=== PATIENT | male | born 1955 | race Caucasian/White ===

== ENCOUNTER 2017-07-12 11:04 | Inpatient (IN) | payer OTHER ==
[2017-07-11 10:30] VITALS: BP 165/117
[2017-07-11 11:15] LABS: ASPARTATE AMINO TRANSFERASE 51 U/L (15-37); BLOOD UREA NITROGEN 12 mg/dL (7-18)
[2017-07-11 11:50] LABS: HEMATOCRIT 43.9 % (39.2-51.8); HEMOGLOBIN 14.3 g/dL (13.7-18.0); WHITE BLOOD COUNT 5.3 x10^3/uL (3.4-10)
[~2017-07-12] VITALS: Ht 175.3 cm; Wt 105.2 kg
[~2017-07-12 11:04] MED LIST: ALBU6.7H INH; ASPI-650 PO; CARV25TA12 PO; CHOL200024 PO; EZET10TA18 PO; FLUT1DIS3 INH; MAGN250T8 PO; MONT10TA6 PO; OMEG-14 PO; OMEP20TA62 PO; ROSU20TA PO; TADA20TA PO; VALS80TA3 PO
[2017-07-12] MEDS ORDERED: SODIUM CHLORIDE 0.9% 1,000 ML IV SCH (12:55)
[2017-07-12] MEDS ORDERED: MIDAZOLAM 1 MG/ML, 5ML ONE (14:41)
[2017-07-12] MEDS ORDERED: FENTANYL PF 100 MCG/2ML ONE (14:41)
[2017-07-12] MEDS ORDERED: VASOPRESSIN 20 UNIT/ML, 1ML ONE (15:38)
[2017-07-12] MEDS ORDERED: PROPOFOL 10 MG/ML, 20ML ONE (15:38)
[2017-07-12] MEDS ORDERED: ONDANSETRON 2MG/ML, 2ML ONE (15:38)
[2017-07-12] MEDS ORDERED: SUCCINYLCHOLINE 20 MG/ML, 10ML ONE (15:38)
[2017-07-12] MEDS ORDERED: DEXAMETHASONE 4 MG/ML, 1ML ONE (15:38)
[2017-07-12] MEDS ORDERED: ROCURONIUM 10 MG/ML ONE (15:38)
[2017-07-12] MEDS ORDERED: ISOPROTERENOL 0.2MG/ML, 5ML ONE (16:22)
[2017-07-12] MEDS ORDERED: HEPARIN 1,000 UNITS/ML, 10ML ONE (16:48)
[2017-07-12] MEDS ORDERED: PROTAMINE SULFATE 10 MG/ML, 5ML ONE (17:48)
[2017-07-12] MEDS ORDERED: ALBUTEROL SULFATE 2.5 MG/3 ML NPPB PRN ×2 (18:00→19:00)
[2017-07-12] MEDS ORDERED: ZOLPIDEM 5MG TABLET PO PRN (18:00)
[2017-07-12] MEDS ORDERED: TADALAFIL 20 MG PO PRN (18:00)
[2017-07-12] MEDS ORDERED: ACETAMINOPHEN 325 MG TABLET PO PRN ×2 (18:00→19:00)
[2017-07-12] MEDS ORDERED: LABETALOL 5MG/ML, 20ML IV PRN (19:00)
[2017-07-12] MEDS ORDERED: ACETAMINOPHEN 650 MG/20.3 ML UDC ONE (19:00)
[2017-07-12] MEDS ORDERED: OXYcodone 5 MG/5 ML ORAL.SOL UDC ONE (19:00)
[2017-07-12] MEDS ORDERED: MEPERIDINE/PF 25MG/0.5ML IVPush PRN (19:00)
[2017-07-12] MEDS ORDERED: MIDAZOLAM 1 MG/ML, 2ML IV PRN (19:00)
[2017-07-12] MEDS ORDERED: OXYcodone 5 MG/5 ML ORAL.SOL UDC PO PRN (19:00)
[2017-07-12] MEDS ORDERED: ONDANSETRON 2MG/ML, 2ML IVPush PRN (19:00)
[2017-07-12] MEDS ORDERED: FENTANYL PF 100 MCG/2ML IV PRN (19:00)
[2017-07-12] MEDS ORDERED: HYDROmorphone 1 MG/ML, 1ML IV PRN (19:00)
[2017-07-12] MEDS ORDERED: hydrALAzine 20 MG/ML, 1ML IV PRN (19:00)
[2017-07-12] MEDS ORDERED: PROMETHAZINE 25 MG/ML, 1ML IV PRN (19:00)
[2017-07-12] MEDS ORDERED: hydrALAzine 20 MG/ML, 1ML ONE (19:18)
[2017-07-12 19:48] VITALS: BP 148/91
[2017-07-12 22:05] VITALS: BP 154/107
[2017-07-12] MEDS: SOTALOL 80MG TABLET PO SCH (22:07)
[2017-07-12] MEDS: ATORVASTATIN 40 MG TABLET PO SCH (22:08)
[2017-07-12] MEDS: OMEGA-3/FISH OIL CAPSULE PO SCH (22:08)
[2017-07-12] MEDS: FLUTICASONE/VILANTEROL 100-25MCG/INH INH SCH (22:11)
[2017-07-12] MEDS: OMEPRAZOLE 20 MG CAPSULE.DR PO SCH (22:11)
[2017-07-12 22:22] VITALS: BP 157/107
[2017-07-13] VITALS (7 sets, daily range): BP systolic 157–188; BP diastolic 94–122
[2017-07-13] MEDS: SOTALOL 80MG TABLET PO SCH (05:37)
[2017-07-13] MEDS ORDERED: VALSARTAN 80 MG TABLET PO ONE (08:30)
[2017-07-13] MEDS: FLUTICASONE/VILANTEROL 100-25MCG/INH INH SCH ×3 (08:55→19:59)
[2017-07-13] MEDS ORDERED: VALSARTAN 80 MG TABLET PO SCH (09:00)
[2017-07-13] MEDS ORDERED: AMLODIPINE 5 MG TABLET PO SCH (09:00)
[2017-07-13] MEDS: EZETIMIBE 10 MG TABLET PO SCH (09:08)
[2017-07-13] MEDS: MAGNESIUM OXIDE 400 MG TABLET PO SCH (09:08)
[2017-07-13] MEDS: MONTELUKAST 10 MG TABLET PO SCH (09:08)
[2017-07-13] MEDS: OMEGA-3/FISH OIL CAPSULE PO SCH ×2 (09:08→19:58)
[2017-07-13] MEDS: ASPIRIN 325 MG TABLET EC PO SCH (09:09)
[2017-07-13] MEDS: CHOLECALCIFEROL 1,000 UNIT TABLET PO SCH (09:09)
[2017-07-13] MEDS: OMEPRAZOLE 20 MG CAPSULE.DR PO SCH ×2 (09:10→19:58)
[2017-07-13] MEDS: SOTALOL 120MG TABLET PO SCH (17:47)
[2017-07-13] MEDS: ATORVASTATIN 40 MG TABLET PO SCH (19:58)
[2017-07-14 02:10] VITALS: BP 173/93
[2017-07-14 04:42] VITALS: BP 164/90
[2017-07-14] MEDS: SOTALOL 120MG TABLET PO SCH (06:17)
[2017-07-14] MEDS ORDERED: VALS80TA3 PO (07:42)
[2017-07-14] MEDS ORDERED: SOTA120T14 PO (07:42)
[2017-07-14 07:53] VITALS: BP 177/99
[2017-07-14] MEDS ORDERED: AMLODIPINE 5 MG TABLET PO SCH (09:00)
[2017-07-14] MEDS ORDERED: VALSARTAN 160 MG TABLET PO SCH (09:00)
[2017-07-14] MEDS: MAGNESIUM OXIDE 400 MG TABLET PO SCH (09:35)
[2017-07-14] MEDS: EZETIMIBE 10 MG TABLET PO SCH (09:36)
[2017-07-14] MEDS: ASPIRIN 325 MG TABLET EC PO SCH (09:36)
[2017-07-14] MEDS: OMEGA-3/FISH OIL CAPSULE PO SCH (09:36)
[2017-07-14] MEDS: MONTELUKAST 10 MG TABLET PO SCH (09:37)
[2017-07-14] MEDS: CHOLECALCIFEROL 1,000 UNIT TABLET PO SCH (09:37)
[2017-07-14] MEDS: FLUTICASONE/VILANTEROL 100-25MCG/INH INH SCH (10:51)
== END 2017-07-14 10:45 | disposition home or self-care (01) | DRG 683 ==
LOC: CACL 11:04 → ORIP 17:57 → 5SO 19:46
PROVIDERS: ADMIT Internal Medicine Cardiovascular Disease; ATTEND Internal Medicine Cardiovascular Disease
DX: I12.9 Hypertensive chronic kidney disease with stage 1 through stage 4 chronic kidney disease, or unspecified chronic kidney disease (principal); I47.1 Supraventricular tachycardia; E11.22 Type 2 diabetes mellitus with diabetic chronic kidney disease; I95.9 Hypotension, unspecified; Z95.1 Presence of aortocoronary bypass graft; I48.91 Unspecified atrial fibrillation; I45.10 Unspecified right bundle-branch block; E78.2 Mixed hyperlipidemia; N18.2 Chronic kidney disease, stage 2 (mild); I25.10 Atherosclerotic heart disease of native coronary artery without angina pectoris; Z87.891 Personal history of nicotine dependence; Z86.79 Personal history of other diseases of the circulatory system
CPT/HCPCS: 36415; 71020; 80053; 85025; 85347; 93005; 93308; 93321; 93325; 93620; 93621; 93622; 93623; C1732; C1760; C1769; C1894; J1100; J1644; J2250; J2405; J2704; J2720; J3010; C1730; C2630; J0330; J0360; Q9967

== ENCOUNTER 2017-07-26 12:03 | Inpatient (IN) | payer OTHER ==
[~2017-07-26] VITALS: Ht 175.3 cm; Wt 100.3 kg
[~2017-07-26 12:03] MED LIST changes: +SOTA120T14 PO
[2017-07-26 12:58] VITALS: BP 154/79
[2017-07-26] MEDS: SODIUM CHLORIDE 0.9% 1,000 ML IV SCH ×2 (13:03→21:03)
[2017-07-26 13:27] LABS: HEMATOCRIT 44.6 % (39.2-51.8); HEMOGLOBIN 14.7 g/dL (13.7-18.0)
[2017-07-26] MEDS ORDERED: ONDANSETRON 2MG/ML, 2ML IV PRN (13:30)
[2017-07-26] MEDS ORDERED: BISACODYL 10 MG SUPP PR PRN (13:30)
[2017-07-26] MEDS ORDERED: ACETAMINOPHEN 650 MG/20.3 ML UDC PO PRN (13:30)
[2017-07-26] MEDS ORDERED: ZOLPIDEM 5MG TABLET PO PRN (13:30)
[2017-07-26] MEDS ORDERED: ALBUTEROL HFA 90 MCG/SPRAY INH PRN (13:30)
[2017-07-26] MEDS ORDERED: CEFAZOLIN PMX 1GM/50ML 50 ML IVPB ONE (13:30)
[2017-07-26 13:39] LABS: BLOOD UREA NITROGEN 11 mg/dL (7-18)
[2017-07-26] MEDS ORDERED: PLEASE ENTER HEIGHT AND WEIGHT MC SCH (14:00)
[2017-07-26] MEDS ORDERED: MIDAZOLAM 1 MG/ML, 5ML ONE ×2 (14:56→15:27)
[2017-07-26] MEDS ORDERED: CEFAZOLIN PMX 1GM/50ML 50 ML ONE (14:56)
[2017-07-26] MEDS ORDERED: FENTANYL PF 100 MCG/2ML ONE ×2 (14:56→15:27)
[2017-07-26] MEDS ORDERED: LIDOCAINE 2%, 20ML ONE ×2 (14:57→15:23)
[2017-07-26] MEDS ORDERED: CEFAZOLIN 1,000 MG ONE (14:57)
[2017-07-26 18:28] VITALS: BP 171/103
[2017-07-26] MEDS: SOTALOL 120MG TABLET PO SCH (18:29)
[2017-07-26] MEDS: VALSARTAN 80 MG TABLET PO SCH (20:07)
[2017-07-26] MEDS: SODIUM CHLORIDE FLUSH 10ML SYR IVF SCH (20:12)
[2017-07-26] MEDS ORDERED: SODIUM CHLORIDE FLUSH 10ML SYR IVF SCH ×2 (21:00)
[2017-07-26] MEDS ORDERED: MONTELUKAST 5 MG TAB.CHEW PO SCH (21:00)
[2017-07-26] MEDS: OXYcodone/APAP 5/325MG TABLET PO PRN (21:09)
[2017-07-26 21:55] VITALS: BP 192/125
[2017-07-26] MEDS: CEFAZOLIN PMX 1GM/50ML 50 ML IVPB SCH (22:50)
[2017-07-26 23:31] VITALS: BP 175/111
[2017-07-26 23:58] VITALS: BP 166/107
[2017-07-27 05:36] VITALS: BP 177/113
[2017-07-27 05:42] VITALS: BP 165/100
[2017-07-27] MEDS: CEFAZOLIN PMX 1GM/50ML 50 ML IVPB SCH (05:47)
[2017-07-27] MEDS: SOTALOL 120MG TABLET PO SCH (05:47)
[2017-07-27] MEDS ORDERED: ASPIRIN 81 MG TABLET EC PO SCH (06:00)
[2017-07-27 06:42] VITALS: BP 164/97
[2017-07-27] MEDS ORDERED: OMEPRAZOLE 20 MG CAPSULE.DR PO SCH (07:30)
[2017-07-27] MEDS: VALSARTAN 80 MG TABLET PO SCH (07:53)
[2017-07-27] MEDS: SODIUM CHLORIDE FLUSH 10ML SYR IVF SCH (07:53)
[2017-07-27] MEDS: OXYcodone/APAP 5/325MG TABLET PO PRN (07:55)
[2017-07-27] MEDS ORDERED: EZETIMIBE 10 MG TABLET PO SCH (09:00)
[2017-07-27] MEDS ORDERED: VALSARTAN 80 MG TABLET PO SCH (09:00)
[2017-07-27] MEDS ORDERED: VALSARTAN 80 MG TABLET PO ONE ×2 (09:00)
[2017-07-27] MEDS ORDERED: OXYC1TAB7 PO (10:24)
[2017-07-27] MEDS ORDERED: SOTA120T14 PO (10:25)
== END 2017-07-27 11:40 | disposition home or self-care (01) | DRG 244 ==
LOC: 5SO 12:21
PROVIDERS: ADMIT Internal Medicine Cardiovascular Disease; ATTEND Internal Medicine Cardiovascular Disease
PROC: 0JH606Z Insertion of Pacemaker, Dual Chamber into Chest Subcutaneous Tissue and Fascia, Open Approach (ICD-10-PCS; principal; 2017-07-26)
PROC: 02H63JZ Insertion of Pacemaker Lead into Right Atrium, Percutaneous Approach (ICD-10-PCS; 2017-07-26)
PROC: 02HK3JZ Insertion of Pacemaker Lead into Right Ventricle, Percutaneous Approach (ICD-10-PCS; 2017-07-26)
DX: I47.2 Ventricular tachycardia (principal); E11.9 Type 2 diabetes mellitus without complications; Z95.1 Presence of aortocoronary bypass graft; E78.5 Hyperlipidemia, unspecified; I10 Essential (primary) hypertension; I25.10 Atherosclerotic heart disease of native coronary artery without angina pectoris; Z82.49 Family history of ischemic heart disease and other diseases of the circulatory system; Z86.79 Personal history of other diseases of the circulatory system; Z95.0 Presence of cardiac pacemaker
CPT/HCPCS: 33208; 36005; 36415; 71010; 80048; 85025; 85610; 93005; 99156; 99157; C1779; C1785; C1892; J0690; J2250; J3010; J3490; Q9967

== ENCOUNTER → 2017-08-12 | Outpatient (CLI) | payer OTHER ==
[~2017-08-12] MED LIST changes: +OXYC1TAB7 PO
== END ==
LOC: CFH 08:58
PROVIDERS: ATTEND Internal Medicine Cardiovascular Disease
DX: Z02.9 Encounter for administrative examinations, unspecified (principal)

== ENCOUNTER 2018-03-03 09:00 | Inpatient (IN) | payer OTHER ==
[~2018-03-03] VITALS: Ht 175.3 cm; Wt 104.0 kg
[2018-03-03 11:22] VITALS: BP 179/109
[2018-03-03] MEDS ORDERED: MAGN400T7 PO (11:36)
[2018-03-03] MEDS ORDERED: VALS80TA3 PO (11:36)
[2018-03-03] MEDS ORDERED: FLUT12AE2 INH (11:36)
[2018-03-03 11:55] LABS: ALBUMIN 2.5 g/dL (3.4-5.0); ANION GAP 10 mmol/L (5-15); CALCIUM 8.7 mg/dL (8.5-10.1); CHLORIDE 104 mmol/L (98-107)
[2018-03-03] MEDS ORDERED: ACETAMINOPHEN 325 MG TABLET PO PRN (12:00)
[2018-03-03] MEDS ORDERED: BISACODYL 10 MG SUPP PR PRN (12:00)
[2018-03-03] MEDS ORDERED: ONDANSETRON 2MG/ML, 2ML IVPush PRN (12:00)
[2018-03-03] MEDS ORDERED: BISACODYL 5 MG EC TABLET PO PRN (12:00)
[2018-03-03 12:04] LABS: ALANINE AMINOTRANSFERASE 27 U/L (12-78); ALKALINE PHOSPHATASE 92 U/L (45-117); BILIRUBIN,TOTAL 2.7 mg/dL (0.2-1.0); CHOL/HDL RATIO 2.8; CHOLESTEROL, TOTAL 105 mg/dL (140-239); CREATININE 1.29 mg/dL (0.7-1.3); FREE T4 (FREE THYROXINE) 1.34 ng/dL (0.76-1.46); HDL CHOL % 36 % (26-37); HDL CHOLESTEROL (DIRECT) 38 mg/dL (40-60); LDL CHOLESTEROL,CALCULATED 50 mg/dL (54-169); LDL/HDL RATIO 1.3 (0.5-3.0); TOTAL PROTEIN 6.2 g/dL (6.4-8.2); TRIGLYCERIDES 87 mg/dL (50-200); VLDL CHOLESTEROL 17 mg/dL (0-25)
[2018-03-03 12:28] LABS: HEMOGLOBIN A1C 5.9 % (4.2-6.3)
[2018-03-03 13:35] VITALS: BP 162/100
[2018-03-03] MEDS: ENOXAPARIN 40 MG/0.4 ML SQ SCH (14:00)
[2018-03-03 17:18] VITALS: BP 126/89
[2018-03-03] MEDS: CARVEDILOL 6.25 MG TABLET PO SCH (17:20)
[2018-03-03 20:34] VITALS: BP 152/95
[2018-03-03] MEDS: CRESTOR 20 MG PO SCH (21:00)
[2018-03-03] MEDS: ZOLPIDEM 5MG TABLET PO PRN (21:00)
[2018-03-04 02:07] VITALS: BP 160/105
[2018-03-04] MEDS: AMLODIPINE 5 MG TABLET PO SCH ×2 (03:26→08:51)
[2018-03-04] MEDS: CARVEDILOL 6.25 MG TABLET PO SCH (05:26)
[2018-03-04 05:28] VITALS: BP 149/94
[2018-03-04 07:55] VITALS: BP 138/94
[2018-03-04] MEDS: EZETIMIBE 10 MG TABLET PO SCH (08:50)
[2018-03-04] MEDS: VALSARTAN 160 MG TABLET PO SCH (08:50)
[2018-03-04] MEDS: OMEPRAZOLE 20 MG CAPSULE.DR PO SCH (08:50)
[2018-03-04] MEDS ORDERED: ALBUTEROL HFA 90 MCG/SPRAY INH PRN (10:30)
[2018-03-04] MEDS ORDERED: hydrALAzine 20 MG/ML, 1ML IV PRN (12:00)
[2018-03-04] MEDS: ENOXAPARIN 40 MG/0.4 ML SQ SCH (12:07)
[2018-03-04 13:11] VITALS: BP 120/64
[2018-03-04] MEDS: CARVEDILOL 12.5 MG TABLET PO SCH (17:59)
[2018-03-04] MEDS: CRESTOR 20 MG PO SCH (20:37)
[2018-03-04] MEDS: FLOVENT 220 MCG INH SCH (20:37)
[2018-03-04] MEDS: ZOLPIDEM 5MG TABLET PO PRN (20:39)
[2018-03-04 20:52] VITALS: BP 144/94
[2018-03-05 00:12] VITALS: BP 144/77
[2018-03-05 06:24] VITALS: BP 166/103
[2018-03-05] MEDS: CARVEDILOL 12.5 MG TABLET PO SCH (06:26)
[2018-03-05] MEDS: VALSARTAN 160 MG TABLET PO SCH (08:00)
[2018-03-05] MEDS: OMEPRAZOLE 20 MG CAPSULE.DR PO SCH (08:00)
[2018-03-05] MEDS: EZETIMIBE 10 MG TABLET PO SCH (08:00)
[2018-03-05] MEDS: FLOVENT 220 MCG INH SCH ×2 (08:01→20:15)
[2018-03-05] MEDS ORDERED: AMIODARONE 900 MG in DEXTROSE 5% 482 ML IV PRN (10:00)
[2018-03-05] MEDS ORDERED: FILTER 0.22 MICRON FOR AMIODARONE IV PRN (10:00)
[2018-03-05] MEDS ORDERED: AMIODARONE 150 MG in DEXTROSE 5% 100 ML IV ONE (10:00)
[2018-03-05] MEDS: ENOXAPARIN 40 MG/0.4 ML SQ SCH (11:11)
[2018-03-05 12:55] VITALS: BP 101/68
[2018-03-05 16:50] VITALS: BP 141/89
[2018-03-05] MEDS: CARVEDILOL 25 MG TABLET PO SCH (16:54)
[2018-03-05 20:10] VITALS: BP 114/74
[2018-03-05] MEDS: CRESTOR 20 MG PO SCH (20:15)
[2018-03-05] MEDS: ZOLPIDEM 5MG TABLET PO PRN (20:26)
[2018-03-06 00:33] VITALS: BP 138/88
[2018-03-06 05:00] VITALS: BP 128/88
[2018-03-06] MEDS: CARVEDILOL 25 MG TABLET PO SCH ×2 (05:05→17:17)
[2018-03-06 07:09] VITALS: BP 114/71
[2018-03-06] MEDS: VALSARTAN 160 MG TABLET PO SCH (07:42)
[2018-03-06] MEDS: FLOVENT 220 MCG INH SCH ×2 (07:42→19:40)
[2018-03-06] MEDS: OMEPRAZOLE 20 MG CAPSULE.DR PO SCH (07:42)
[2018-03-06] MEDS: EZETIMIBE 10 MG TABLET PO SCH (07:42)
[2018-03-06] MEDS: AMIODARONE 200 MG TABLET PO SCH ×2 (10:03→19:40)
[2018-03-06] MEDS: ENOXAPARIN 40 MG/0.4 ML SQ SCH (12:03)
[2018-03-06 13:53] VITALS: BP 110/76
[2018-03-06 18:29] VITALS: BP 110/68
[2018-03-06] MEDS: CRESTOR 20 MG PO SCH (19:40)
[2018-03-07 00:40] VITALS: BP 119/77
[2018-03-07] MEDS: CARVEDILOL 25 MG TABLET PO SCH (06:29)
[2018-03-07 06:58] VITALS: BP 137/79
[2018-03-07] MEDS: VALSARTAN 160 MG TABLET PO SCH (08:04)
[2018-03-07] MEDS: OMEPRAZOLE 20 MG CAPSULE.DR PO SCH (08:04)
[2018-03-07] MEDS: EZETIMIBE 10 MG TABLET PO SCH (08:05)
[2018-03-07] MEDS: AMIODARONE 200 MG TABLET PO SCH (08:05)
[2018-03-07] MEDS: FLOVENT 220 MCG INH SCH (08:09)
[2018-03-07] MEDS ORDERED: CARV25TA12 PO (08:38)
[2018-03-07] MEDS ORDERED: AMIO200T42 PO (08:38)
== END 2018-03-07 11:15 | disposition home or self-care (01) | DRG 309 ==
LOC: 5SO 10:58 → DCLOUNGE 03-07 11:02
PROVIDERS: ADMIT Internal Medicine Cardiovascular Disease; ATTEND Internal Medicine Cardiovascular Disease
DX: I47.2 Ventricular tachycardia (principal); D68.69 Other thrombophilia; E66.9 Obesity, unspecified; I48.0 Paroxysmal atrial fibrillation; I25.10 Atherosclerotic heart disease of native coronary artery without angina pectoris; Z86.79 Personal history of other diseases of the circulatory system; Z87.891 Personal history of nicotine dependence; Z95.0 Presence of cardiac pacemaker; Z95.1 Presence of aortocoronary bypass graft; Z68.33 Body mass index [BMI] 33.0-33.9, adult; Z51.81 Encounter for therapeutic drug level monitoring; I49.5 Sick sinus syndrome; I25.2 Old myocardial infarction; I12.9 Hypertensive chronic kidney disease with stage 1 through stage 4 chronic kidney disease, or unspecified chronic kidney disease; E11.22 Type 2 diabetes mellitus with diabetic chronic kidney disease; N18.2 Chronic kidney disease, stage 2 (mild); E78.2 Mixed hyperlipidemia; Z88.8 Allergy status to other drugs, medicaments and biological substances
CPT/HCPCS: 36415; 71046; 80053; 80061; 83036; 84439; 84443; 85014; 85018; 93005; J1650; J0282; J7060

== ENCOUNTER → 2018-09-24 | Outpatient (CLI) | payer OTHER ==
[~2018-09-24] MED LIST changes: +AMIO200T42 PO; +FLUT12AE2 INH; +MAGN400T7 PO; +REGADENOSON 0.4 MG/5 ML SYRINGE ONE
== END | disposition home or self-care (01) ==
LOC: CFH 07:58
PROVIDERS: ATTEND Internal Medicine Cardiovascular Disease
DX: I08.0 Rheumatic disorders of both mitral and aortic valves (principal); E11.9 Type 2 diabetes mellitus without complications; I44.0 Atrioventricular block, first degree; E78.5 Hyperlipidemia, unspecified; J90 Pleural effusion, not elsewhere classified; Z95.0 Presence of cardiac pacemaker; Z95.1 Presence of aortocoronary bypass graft
CPT/HCPCS: 78452; 93017; 93306; A9502; J2785

== ENCOUNTER 2018-11-12 07:05 | Observation (INO) | payer OTHER ==
[~2018-11-12] VITALS: Ht 175.3 cm; Wt 97.0 kg
[~2018-11-12 07:05] MED LIST changes: +BUPIVACAINE/PF-EPI 0.5% 1:200K ONE; +CARV12.52 PO; +LACT10SO20 PO; -REGADENOSON 0.4 MG/5 ML SYRINGE ONE; -ROSU20TA PO; +ROSU20TA2 PO; +SPIR50TA4 PO
[2018-11-12] MEDS ORDERED: LACTATED RINGERS 1,000 ML IV SCH (07:58)
[2018-11-12 08:02] VITALS: BP 126/85
[2018-11-12] MEDS ORDERED: MIDAZOLAM 1 MG/ML, 2ML ONE (08:41)
[2018-11-12] MEDS ORDERED: FENTANYL PF 250 MCG/5ML ONE (08:42)
[2018-11-12] MEDS ORDERED: SUCCINYLCHOLINE 20 MG/ML, 10ML ONE (08:56)
[2018-11-12] MEDS ORDERED: GLYCOPYRROLATE 0.2MG/1ML, 5ML ONE (08:56)
[2018-11-12] MEDS ORDERED: ONDANSETRON 2MG/ML, 2ML ONE (08:56)
[2018-11-12] MEDS ORDERED: CEFAZOLIN 1,000 MG ONE (08:56)
[2018-11-12] MEDS ORDERED: NEOSTIGMINE 1 MG/ML, 10ML ONE (08:56)
[2018-11-12] MEDS ORDERED: ROCURONIUM 10 MG/ML,10ML ONE (08:56)
[2018-11-12] MEDS ORDERED: PROPOFOL 10 MG/ML, 20ML ONE (08:56)
[2018-11-12] MEDS ORDERED: OXYcodone 5 MG/5 ML ORAL.SOL UDC PO PRN ×2 (10:00→17:30)
[2018-11-12] MEDS ORDERED: LORazepam 2 MG/ML, 1ML IVPush PRN (10:00)
[2018-11-12] MEDS ORDERED: MORPHINE SULFATE 4 MG/ML, 1ML IVPush PRN (10:00)
[2018-11-12] MEDS ORDERED: ACETAMINOPHEN 325 MG TABLET PO PRN ×2 (10:00→19:30)
[2018-11-12] MEDS ORDERED: METOCLOPRAMIDE 5 MG/ML, 2ML IV PRN (10:00)
[2018-11-12] MEDS ORDERED: LABETALOL 5MG/ML, 20ML IV PRN (10:00)
[2018-11-12] MEDS ORDERED: hydrALAzine 20 MG/ML, 1ML IV PRN (10:00)
[2018-11-12] MEDS ORDERED: ALBUTEROL SULFATE 2.5 MG/3 ML NPPB PRN (10:00)
[2018-11-12] MEDS ORDERED: hydrALAzine 20 MG/ML, 1ML ONE (10:36)
[2018-11-12] MEDS ORDERED: FENTANYL PF 100 MCG/2ML ONE (10:36)
[2018-11-12] MEDS ORDERED: OXYcodone 5 MG/5 ML ORAL.SOL UDC ONE (10:36)
[2018-11-12] MEDS: FENTANYL PF 100 MCG/2ML IV PRN ×2 (10:45→11:00)
[2018-11-12] MEDS: HYDROmorphone 2 MG/ML, 1ML IVPush PRN ×2 (12:33→20:21)
[2018-11-12] MEDS ORDERED: DIPHENHYDRAMINE 50 MG/ML, 1ML IVPush PRN (16:00)
[2018-11-12] MEDS ORDERED: SCOPOLAMINE PATCH, 1.5MG PATCH.TD72 TD ONE ×2 (16:16→16:30)
[2018-11-12] MEDS ORDERED: ONDANSETRON 2MG/ML, 2ML IVPush ONE (16:30)
[2018-11-12 19:26] VITALS: BP 144/92
[2018-11-12] MEDS ORDERED: morphine SULFATE 10 MG/ML, 1ML IVPush PRN (19:30)
[2018-11-12] MEDS ORDERED: ONDANSETRON 2MG/ML, 2ML IVPush PRN (19:30)
[2018-11-12] MEDS ORDERED: ACETAMINOPHEN 650 MG SUPP PR PRN (19:30)
[2018-11-12] MEDS ORDERED: ONDANSETRON 4 MG TABLET PO PRN (19:30)
[2018-11-12] MEDS ORDERED: PROMETHAZINE 25 MG SUPP PR PRN (19:30)
[2018-11-12] MEDS ORDERED: ALBUTEROL SULFATE 2.5 MG/3 ML HHN PRN (20:30)
[2018-11-12] MEDS ORDERED: EZETIMIBE 10 MG TABLET PO SCH (21:00)
[2018-11-12] MEDS ORDERED: MAGNESIUM OXIDE 400 MG TABLET PO SCH (21:00)
[2018-11-12] MEDS: CARVEDILOL 12.5 MG TABLET PO SCH (21:43)
[2018-11-13 00:33] VITALS: BP 145/70
[2018-11-13] MEDS: OXYcodone 5 MG/5 ML ORAL.SOL UDC PO PRN ×4 (01:08→17:10)
[2018-11-13 04:28] VITALS: BP 122/78
[2018-11-13] MEDS: OMEPRAZOLE 20 MG CAPSULE.DR PO SCH ×2 (05:57→09:00)
[2018-11-13] MEDS ORDERED: CARVEDILOL 12.5 MG TABLET PO SCH (06:00)
[2018-11-13] MEDS ORDERED: ASPIRIN 325 MG TABLET EC PO SCH (06:00)
[2018-11-13 07:15] VITALS: BP 112/78
[2018-11-13] MEDS: CARVEDILOL 12.5 MG TABLET PO SCH (07:52)
[2018-11-13] MEDS ORDERED: LACTATED RINGERS 1,000 ML IV SCH (07:58)
[2018-11-13] MEDS ORDERED: OMEGA-3/FISH OIL CAPSULE PO SCH (09:00)
[2018-11-13] MEDS ORDERED: AMIODARONE 200 MG TABLET PO SCH (09:00)
[2018-11-13] MEDS ORDERED: CHOLECALCIFEROL 1,000 UNIT TABLET PO SCH (09:00)
[2018-11-13] MEDS ORDERED: TAMSULOSIN 0.4 MG CAP.ER.24H PO SCH (09:00)
[2018-11-13] MEDS ORDERED: SPIRONOLACTONE 50 MG TABLET PO SCH (09:00)
[2018-11-13] MEDS ORDERED: LACTULOSE 20 GM/30 ML UDC PO SCH (09:00)
[2018-11-13] MEDS ORDERED: MORPHINE SULFATE 4 MG/ML, 1ML ONE (10:44)
[2018-11-13 13:13] VITALS: BP 122/74
[2018-11-13] MEDS ORDERED: TAMS-11 PO (17:26)
[2018-11-13 17:41] VITALS: BP 128/94
== END 2018-11-13 18:05 | disposition home or self-care (01) ==
LOC: OUT 07:05 → 4NOR 19:15 → OUT 19:21
PROVIDERS: ADMIT Surgery; ATTEND Surgery
DX: K40.90 Unilateral inguinal hernia, without obstruction or gangrene, not specified as recurrent (principal); K42.9 Umbilical hernia without obstruction or gangrene; D17.9 Benign lipomatous neoplasm, unspecified; K66.8 Other specified disorders of peritoneum; I10 Essential (primary) hypertension
CPT/HCPCS: 49650; 49652; 96374; 96375; C1781; G0378; J0330; J0360; J0690; J1170; J1200; J2250; J2270; J2405; J2704; J2710; J3010; J3490

== ENCOUNTER 2018-11-15 08:49 | Inpatient (IN) | payer OTHER ==
[~2018-11-15] VITALS: Ht 175.3 cm; Wt 95.4 kg
[~2018-11-15 08:49] MED LIST changes: -BUPIVACAINE/PF-EPI 0.5% 1:200K ONE; +TAMS-11 PO
--- NOTE | 2018-11-15 08:53 | NUR ---
TITRATOR: MD ALEJANDRO OF [facility] SENT PT FOR EVALUATION OF CONFUSION X 3 DAYS & STATES THAT HIS TEAM WILL TAKE PT IF HE IS TO BE ADMITTED. PT HAD HERNIA REPAIR BY MD LINTON 3 DAYS AGO W/ SOME URINARY RETENTION.
[2018-11-15] MEDS ORDERED: SODIUM CHLORIDE FLUSH 10ML SYR IVF ONE (09:30)
--- NOTE | 2018-11-15 09:48 | NUR ---
pt refuses iv at this time. family at bedside encouraging pt to stay and particiate. pt uncooperative and insists that he will not be admitted.
[2018-11-15 10:05] LABS: ALANINE AMINOTRANSFERASE 16 U/L (12-78); ALBUMIN 2.8 g/dL (3.4-5.0); ANION GAP 8 mmol/L (5-15); CALCIUM 8.6 mg/dL (8.5-10.1); CHLORIDE 103 mmol/L (98-107); CREATININE 1.44 mg/dL (0.7-1.3)
[2018-11-15 10:07] LABS: ALKALINE PHOSPHATASE 85 U/L (45-117); BILIRUBIN,TOTAL 2.5 mg/dL (0.2-1.0); TOTAL PROTEIN 6.4 g/dL (6.4-8.2)
[2018-11-15 10:24] LABS: INTERNATIONAL NORMALIZED RATIO 1.34 (0.93-1.1); PROTHROMBIN TIME 13.9 Seconds (9.6-11.5)
[2018-11-15 10:25] LABS: MICROSCOPIC INDICATED
[2018-11-15 10:28] LABS: ACETONE, SERUM Small (20mg/dL) mg/dL (Negative)
[2018-11-15 10:29] LABS: CULTURE INDICATED? NO
[2018-11-15] MEDS ORDERED: MAGNESIUM SULFATE PMX 2GM/50ML 50 ML IV ONE (10:30)
[2018-11-15] MEDS ORDERED: LACTULOSE 20 GM/30 ML UDC PO ONE (10:30)
[2018-11-15 10:50] LABS: MEAN CORPUSCULAR HGB CONC 32.6 g/dL (33.2-36.2); MEAN CORPUSCULAR VOLUME 92.1 fL (81-97); PLATELET COUNT 102 x10^3/uL (130-400); RED BLOOD COUNT 4.08 x10^6/uL (4.38-5.82); RED CELL DISTRIBUTION WIDTH 17.8 % (9.4-14.8)
[2018-11-15 10:51] LABS: MD YES; MEAN PLATELET VOLUME 8.8 fL (7.4-10.4)
[2018-11-15] MEDS ORDERED: MAGNESIUM SULFATE PMX 2GM/50ML 50 ML ONE (10:54)
[2018-11-15 10:56] LABS: BAND#(MANUAL) 0.05 x10^3/uL; BANDS%(MANUAL) 1 % (0-7); BASOS#(MANUAL) 0.05 x10^3/uL (0-0.1); BASOS% (MANUAL) 1 % (0-1); EOS#(MANUAL) 0.11 x10^3/uL (0.0-0.4); EOS% (MANUAL) 2 % (1-7); LYMPH#(MANUAL) 0.81 x10^3/uL (1-3.4); LYMPHS% (MANUAL) 15 % (22-44); MONOS#(MANUAL) 1.03 x10^3/uL (0.3-2.7); MONOS% (MANUAL) 19 % (2-9); SEG#(MANUAL) 3.35 x10^3/uL (1.8-6.8); SEGS% (MANUAL) 62 % (42-75)
[2018-11-15 10:58] LABS: <PLATELET ESTIMATE> DECREASED; ANISOCYTOSIS 1+; LARGE PLATELETS 1+; OVALOCYTES 1+
[2018-11-15] MEDS ORDERED: CARV6.252 PO (12:29)
[2018-11-15] MEDS ORDERED: ROSUVASTATIN CALCIUM PO (12:29)
[2018-11-15] MEDS ORDERED: LABETALOL 5MG/ML, 20ML IVPush PRN (12:30)
[2018-11-15] MEDS ORDERED: ONDANSETRON 2MG/ML, 2ML IVPush PRN (12:30)
--- NOTE | 2018-11-15 12:42 | NUR ---
SBAR TO ALLISON BLANCO VIA TELEPHONE
[2018-11-15 12:49] LABS: TROPONIN I < 0.015 ng/mL (0.000-0.045)
[2018-11-15 13:50] LABS: AMPHETAMINE SCREEN, URINE Negative (Negative); BARBITURATE SCREEN, URINE Negative (Negative); BENZODIAZEPINE SCREEN, URINE Positive (Negative); CANNABINOID SCREEN, URINE Negative (Negative)
[2018-11-15 13:51] LABS: COCAINE SCREEN, URINE Negative (Negative); METHADONE SCREEN, URINE Negative (Negative); OPIATE SCREEN, URINE Positive (Negative)
[2018-11-15 14:23] VITALS: BP 107/66
[2018-11-15] MEDS: SODIUM CHLORIDE 0.9% 1,000 ML IV SCH ×2 (15:00→22:42)
[2018-11-15] MEDS: IBUPROFEN 600 MG TABLET PO PRN ×2 (16:16→22:40)
[2018-11-15] MEDS: LORazepam 0.5MG TABLET PO PRN ×2 (16:16→22:40)
[2018-11-15 19:06] VITALS: BP 102/63
[2018-11-15 22:36] VITALS: BP 129/78
[2018-11-15] MEDS: CARVEDILOL 6.25 MG TABLET PO SCH (22:40)
[2018-11-15] MEDS: ASPIRIN 325 MG TABLET EC PO SCH (22:40)
[2018-11-15] MEDS: EZETIMIBE 10 MG TABLET PO SCH (22:40)
[2018-11-16] MEDS ORDERED: ZIPRASIDONE 20 MG INJ IM ONE (00:30)
[2018-11-16] MEDS ORDERED: ZOLPIDEM 5MG TABLET PO ONE (01:00)
[2018-11-16 01:48] VITALS: BP 128/79
[2018-11-16] MEDS ORDERED: DIPHENHYDRAMINE 25 MG CAPSULE PO ONE (04:00)
[2018-11-16] MEDS ORDERED: HALOPERIDOL 5 MG TABLET PO ONE ×2 (04:00→07:30)
[2018-11-16 04:41] LABS: MEAN CORPUSCULAR HEMOGLOBIN 30.5 pg (27.5-34.5); MEAN CORPUSCULAR HGB CONC 32.9 g/dL (33.2-36.2); MEAN CORPUSCULAR VOLUME 92.8 fL (81-97); MEAN PLATELET VOLUME 8.5 fL (7.4-10.4); PLATELET COUNT 91 x10^3/uL (130-400); RED BLOOD COUNT 3.67 x10^6/uL (4.38-5.82); RED CELL DISTRIBUTION WIDTH 17.9 % (9.4-14.8)
[2018-11-16 04:46] LABS: ALBUMIN 2.6 g/dL (3.4-5.0); ANION GAP 6 mmol/L (5-15); CALCIUM 7.9 mg/dL (8.5-10.1); CHLORIDE 106 mmol/L (98-107)
[2018-11-16 04:51] LABS: ALANINE AMINOTRANSFERASE 13 U/L (12-78); ALKALINE PHOSPHATASE 77 U/L (45-117); BILIRUBIN,TOTAL 2.2 mg/dL (0.2-1.0); PREALBUMIN 10.1 mg/dL (20.0-40.0)
[2018-11-16 05:43] LABS: BASOPHILS # (AUTO) 0.03 x10^3/uL (0-0.1); BASOPHILS % (AUTO) 1 % (0-1); EOSINOPHILS # (AUTO) 0.17 x10^3/uL (0-0.4); EOSINOPHILS % (AUTO) 3 % (1-7); LYMPHOCYTES # (AUTO) 0.81 x10^3/uL (1-3.4); LYMPHOCYTES % (AUTO) 17 % (22-44); MD SCAN; MONOCYTES # (AUTO) 0.96 x10^3/uL (0.2-0.8); MONOCYTES % (AUTO) 19 % (2-9); NEUTROPHILS # (AUTO) 2.96 x10^3/uL (1.8-6.8); NEUTROPHILS % (AUTO) 60 % (42-75)
[2018-11-16 07:15] VITALS: BP 126/76
[2018-11-16] MEDS ORDERED: LORazepam 1MG TABLET PO ONE (07:30)
[2018-11-16] MEDS ORDERED: LACTULOSE 3.3 GM/5 ML ORAL.SOL PO SCH (09:00)
[2018-11-16] MEDS ORDERED: LACTULOSE 10 GM/15 ML UDC PO SCH (09:00)
[2018-11-16] MEDS: CARVEDILOL 6.25 MG TABLET PO SCH ×2 (09:38→20:55)
[2018-11-16] MEDS: SPIRONOLACTONE 50 MG TABLET PO SCH (09:38)
[2018-11-16] MEDS: AMIODARONE 200 MG TABLET PO SCH (09:38)
[2018-11-16] MEDS: OMEPRAZOLE 20 MG CAPSULE.DR PO SCH (09:38)
[2018-11-16] MEDS: ZIPRASIDONE 20MG CAPSULE PO SCH ×2 (11:20→20:54)
[2018-11-16] MEDS: IBUPROFEN 600 MG TABLET PO PRN ×2 (16:39→23:00)
[2018-11-16 19:13] VITALS: BP 169/80
[2018-11-16 19:49] VITALS: BP 155/93
[2018-11-16] MEDS: LORazepam 0.5MG TABLET PO PRN (19:51)
[2018-11-16] MEDS: EZETIMIBE 10 MG TABLET PO SCH (20:54)
[2018-11-16] MEDS: ASPIRIN 325 MG TABLET EC PO SCH (20:54)
[2018-11-17] MEDS ORDERED: LORazepam 2 MG/ML, 1ML IM PRN (04:00)
[2018-11-17 05:16] LABS: ALANINE AMINOTRANSFERASE 15 U/L (12-78); ALBUMIN 2.6 g/dL (3.4-5.0); ANION GAP 6 mmol/L (5-15); CALCIUM 8.4 mg/dL (8.5-10.1); CHLORIDE 110 mmol/L (98-107)
[2018-11-17] MEDS ORDERED: LACTULOSE 10 GM/15 ML UDC PO SCH ×2 (05:30→09:00)
[2018-11-17] MEDS ORDERED: SODIUM CHLORIDE 0.9%, 500ML IVBOLUS ONE (05:30)
[2018-11-17] MEDS ORDERED: MAGNESIUM SULFATE PMX 2GM/50ML 50 ML IV ONE (05:30)
[2018-11-17 05:43] LABS: ALKALINE PHOSPHATASE 73 U/L (45-117); BILIRUBIN,TOTAL 1.6 mg/dL (0.2-1.0)
[2018-11-17 05:57] LABS: MD YES; MEAN CORPUSCULAR HEMOGLOBIN 31.2 pg (27.5-34.5); MEAN CORPUSCULAR HGB CONC 33.2 g/dL (33.2-36.2); MEAN CORPUSCULAR VOLUME 94.1 fL (81-97); MEAN PLATELET VOLUME 8.6 fL (7.4-10.4); PLATELET COUNT 83 x10^3/uL (130-400); RED BLOOD COUNT 3.75 x10^6/uL (4.38-5.82); RED CELL DISTRIBUTION WIDTH 17.6 % (9.4-14.8)
[2018-11-17 06:00] LABS: <PLATELET ESTIMATE> DECREASED; <PLT MORPHOLOGY> NORMAL PLT MORPH; ANISOCYTOSIS 1+; BAND#(MANUAL) 0.07 x10^3/uL; BANDS%(MANUAL) 2 % (0-7); EOS#(MANUAL) 0.18 x10^3/uL (0.0-0.4); EOS% (MANUAL) 5 % (1-7); LYMPH#(MANUAL) 0.79 x10^3/uL (1-3.4); LYMPHS% (MANUAL) 22 % (22-44); MONOS#(MANUAL) 0.72 x10^3/uL (0.3-2.7); MONOS% (MANUAL) 20 % (2-9); POLYCHROMASIA 1+; SEG#(MANUAL) 1.84 x10^3/uL (1.8-6.8); SEGS% (MANUAL) 51 % (42-75)
[2018-11-17 06:07] VITALS: BP 119/75
[2018-11-17 06:55] VITALS: BP 151/75
[2018-11-17] MEDS: SODIUM CHLORIDE 0.9% 1,000 ML IV SCH ×2 (07:33→17:47)
[2018-11-17] MEDS: CARVEDILOL 6.25 MG TABLET PO SCH ×2 (08:25→20:24)
[2018-11-17] MEDS: OMEPRAZOLE 20 MG CAPSULE.DR PO SCH (08:25)
[2018-11-17] MEDS: ZIPRASIDONE 20MG CAPSULE PO SCH ×2 (08:25→20:25)
[2018-11-17] MEDS: SPIRONOLACTONE 50 MG TABLET PO SCH (08:25)
[2018-11-17] MEDS: AMIODARONE 200 MG TABLET PO SCH (08:25)
[2018-11-17 08:36] VITALS: BP 112/70
[2018-11-17] MEDS ORDERED: POTASSIUM CHLORIDE 20 MEQ, MAGNESIUM SULFATE 1 GM, FOLIC ACID 1 MG, MVI ADULT 10 ML in ... IV ONE (09:00)
[2018-11-17] MEDS ORDERED: RIFAXIMIN 200 MG TABLET PO SCH (09:00)
[2018-11-17] MEDS ORDERED: THIAMINE 100MG TABLET PO ONE (09:00)
[2018-11-17 14:59] VITALS: BP 128/70
[2018-11-17] MEDS: IBUPROFEN 600 MG TABLET PO PRN (17:46)
[2018-11-17 20:20] VITALS: BP 131/79
[2018-11-17] MEDS: EZETIMIBE 10 MG TABLET PO SCH (20:24)
[2018-11-17] MEDS: ASPIRIN 325 MG TABLET EC PO SCH (20:25)
[2018-11-18] MEDS: IBUPROFEN 600 MG TABLET PO PRN ×2 (00:08→07:51)
[2018-11-18] MEDS: SODIUM CHLORIDE 0.9% 1,000 ML IV SCH (03:29)
[2018-11-18 05:06] LABS: MEAN CORPUSCULAR HEMOGLOBIN 31.5 pg (27.5-34.5); MEAN CORPUSCULAR HGB CONC 33.7 g/dL (33.2-36.2); MEAN CORPUSCULAR VOLUME 93.4 fL (81-97); MEAN PLATELET VOLUME 8.5 fL (7.4-10.4); PLATELET COUNT 78 x10^3/uL (130-400); RED BLOOD COUNT 3.66 x10^6/uL (4.38-5.82); RED CELL DISTRIBUTION WIDTH 18.3 % (9.4-14.8)
[2018-11-18 05:12] LABS: ALBUMIN 2.4 g/dL (3.4-5.0); ANION GAP 5 mmol/L (5-15); CALCIUM 8.2 mg/dL (8.5-10.1); CHLORIDE 112 mmol/L (98-107)
[2018-11-18 05:16] LABS: ALANINE AMINOTRANSFERASE 12 U/L (12-78); ALKALINE PHOSPHATASE 61 U/L (45-117); BILIRUBIN,TOTAL 1.6 mg/dL (0.2-1.0); CREATININE 1.22 mg/dL (0.7-1.3); TOTAL PROTEIN 5.6 g/dL (6.4-8.2)
[2018-11-18 06:17] LABS: MD YES
[2018-11-18 06:20] LABS: BAND#(MANUAL) 0.04 x10^3/uL; BANDS%(MANUAL) 1 % (0-7); EOS#(MANUAL) 0.38 x10^3/uL (0.0-0.4); EOS% (MANUAL) 9 % (1-7); LYMPH#(MANUAL) 0.84 x10^3/uL (1-3.4); LYMPHS% (MANUAL) 20 % (22-44); MONOS#(MANUAL) 1.18 x10^3/uL (0.3-2.7); MONOS% (MANUAL) 28 % (2-9); SEG#(MANUAL) 1.76 x10^3/uL (1.8-6.8); SEGS% (MANUAL) 42 % (42-75)
[2018-11-18 06:21] LABS: <PLATELET ESTIMATE> DECREASED; <PLT MORPHOLOGY> NORMAL PLT MORPH; ANISOCYTOSIS 1+; OVALOCYTES 1+
[2018-11-18] MEDS: AMIODARONE 200 MG TABLET PO SCH (07:50)
[2018-11-18] MEDS: OMEPRAZOLE 20 MG CAPSULE.DR PO SCH (07:50)
[2018-11-18] MEDS: ZIPRASIDONE 20MG CAPSULE PO SCH (07:50)
[2018-11-18] MEDS: CARVEDILOL 6.25 MG TABLET PO SCH (07:51)
[2018-11-18] MEDS: SPIRONOLACTONE 50 MG TABLET PO SCH (07:51)
[2018-11-18 08:25] VITALS: BP 124/80
[2018-11-18] MEDS ORDERED: LACTULOSE 20 GM/30 ML UDC PO PRN (09:00)
[2018-11-18] MEDS ORDERED: LACTULOSE 10 GM/15 ML UDC PO SCH (09:00)
[2018-11-18 13:55] VITALS: BP 113/77
== END 2018-11-18 15:13 | disposition home or self-care (01) | DRG 441 ==
LOC: ED 09:10 → EDIP 12:12 → 3NE 13:15 → DCLOUNGE 11-18 14:48
PROVIDERS: ADMIT Family Medicine; ATTEND Family Medicine
DX: K72.00 Acute and subacute hepatic failure without coma (principal); E43 Unspecified severe protein-calorie malnutrition; N17.0 Acute kidney failure with tubular necrosis; I13.0 Hypertensive heart and chronic kidney disease with heart failure and stage 1 through stage 4 chronic kidney disease, or unspecified chronic kidney disease; D63.8 Anemia in other chronic diseases classified elsewhere; D69.6 Thrombocytopenia, unspecified; E11.22 Type 2 diabetes mellitus with diabetic chronic kidney disease; E78.00 Pure hypercholesterolemia, unspecified; E86.0 Dehydration; F43.10 Post-traumatic stress disorder, unspecified; I25.10 Atherosclerotic heart disease of native coronary artery without angina pectoris; I50.9 Heart failure, unspecified; K21.9 Gastro-esophageal reflux disease without esophagitis; J45.909 Unspecified asthma, uncomplicated; K74.60 Unspecified cirrhosis of liver; N18.3 Chronic kidney disease, stage 3 (moderate); I25.2 Old myocardial infarction; Z95.0 Presence of cardiac pacemaker; Z95.1 Presence of aortocoronary bypass graft; Z88.8 Allergy status to other drugs, medicaments and biological substances; Z68.31 Body mass index [BMI] 31.0-31.9, adult
CPT/HCPCS: 36415; 70450; 71045; 76700; 80053; 80307; 81001; 82010; 82140; 82607; 83735; 84134; 84484; 85025; 85610; 93308; 93321; 93325; 96365; 99285; G0378; J3475; J3480; J7030; J7040; Q0163

== ENCOUNTER 2019-03-12 09:27 | Outpatient (CLI) | payer OTHER ==
[~2019-03-12 09:27] MED LIST changes: +CARV6.252 PO; +ROSUVASTATIN CALCIUM PO
== END 2019-03-12 23:59 | disposition home or self-care (01) ==
LOC: CFH 09:27
PROVIDERS: ATTEND Family Medicine
DX: R07.81 Pleurodynia (principal); W18.30XA Fall on same level, unspecified, initial encounter; Y93.89 Activity, other specified; Y92.89 Other specified places as the place of occurrence of the external cause; Y99.8 Other external cause status

== ENCOUNTER 2019-06-18 10:39 | Outpatient (CLI) | payer OTHER ==
[~2019-06-18 10:39] MED LIST changes: -ALBU6.7H INH; +ALBU6.7H8 INH; -EZET10TA18 PO; +EZET10TA70 PO; -MAGN400T7 PO; +MAGN400T9 PO
== END 2019-06-18 23:59 | disposition home or self-care (01) ==
LOC: STAR 10:39
PROVIDERS: ATTEND Surgery
DX: Z01.818 Encounter for other preprocedural examination (principal); K40.90 Unilateral inguinal hernia, without obstruction or gangrene, not specified as recurrent; R94.31 Abnormal electrocardiogram [ECG] [EKG]
CPT/HCPCS: 93005

== ENCOUNTER 2019-06-30 12:29 | Day surgery (SDC) | payer OTHER ==
[~2019-06-30] VITALS: Ht 175.3 cm; Wt 83.0 kg
[~2019-06-30 12:29] MED LIST changes: +BUPIVACAINE/PF 0.5% ONE; +EPINEPHRINE 1 MG/ML, 1ML ONE
[2019-06-30] MEDS ORDERED: LACTATED RINGERS 1,000 ML IV SCH (12:44)
[2019-06-30 13:02] VITALS: BP 123/71
[2019-06-30] MEDS ORDERED: MIDAZOLAM 1 MG/ML, 2ML ONE (14:24)
[2019-06-30] MEDS ORDERED: FENTANYL PF 250 MCG/5ML ONE (14:24)
[2019-06-30] MEDS ORDERED: GABAPENTIN 300 MG CAPSULE ONE (14:24)
[2019-06-30] MEDS ORDERED: SCOPOLAMINE PATCH, 1.5MG PATCH.TD72 TD ONE ×2 (14:24→14:30)
[2019-06-30] MEDS ORDERED: ROCURONIUM 10MG/ML,5ML ONE (14:26)
[2019-06-30] MEDS ORDERED: PROPOFOL 10 MG/ML, 20ML ONE (14:26)
[2019-06-30] MEDS ORDERED: DEXAMETHASONE 4 MG/ML, 1ML ONE ×2 (14:26)
[2019-06-30] MEDS ORDERED: SUCCINYLCHOLINE 20 MG/ML, 10ML ONE (14:26)
[2019-06-30] MEDS ORDERED: GABAPENTIN 300 MG CAPSULE PO ONE (14:30)
[2019-06-30] MEDS ORDERED: NEOSTIGMINE 1 MG/ML, 10ML ONE (14:35)
[2019-06-30] MEDS ORDERED: GLYCOPYRROLATE 0.2MG/1ML, 5ML ONE (14:35)
[2019-06-30] MEDS ORDERED: CEFAZOLIN 1,000 MG ONE (14:35)
[2019-06-30] MEDS ORDERED: hydrALAzine 20 MG/ML, 1ML IV PRN (15:30)
[2019-06-30] MEDS ORDERED: ONDANSETRON ODT 8 MG PO PRN (15:30)
[2019-06-30] MEDS ORDERED: HALOPERIDOL 5 MG/ML IV PRN (15:30)
[2019-06-30] MEDS ORDERED: MEPERIDINE/PF 25MG/ML,1ML IVPush PRN (15:30)
[2019-06-30] MEDS ORDERED: FENTANYL PF 100 MCG/2ML IV PRN (15:30)
[2019-06-30] MEDS ORDERED: OXYcodone 5 MG/5 ML ORAL.SOL UDC PO PRN (15:30)
[2019-06-30] MEDS ORDERED: EPHEDRINE 50 MG/ML, 1ML IVPush PRN (15:30)
[2019-06-30] MEDS ORDERED: MIDAZOLAM 1 MG/ML, 2ML IV PRN (15:30)
[2019-06-30] MEDS ORDERED: DIAZEPAM 5 MG/ML, 2ML IVPush PRN (15:30)
[2019-06-30] MEDS ORDERED: ALBUTEROL SULFATE 2.5 MG/3 ML NPPB PRN (15:30)
[2019-06-30] MEDS ORDERED: ONDANSETRON 2MG/ML, 2ML IV PRN (15:30)
[2019-06-30] MEDS ORDERED: HYDROmorphone 2 MG/ML, 1ML IVPush PRN ×2 (15:30→16:00)
[2019-06-30] MEDS ORDERED: LABETALOL 5MG/ML, 20ML IV PRN (15:30)
[2019-06-30] MEDS ORDERED: PROMETHAZINE 25 MG/ML, 1ML IV PRN (15:30)
[2019-06-30] MEDS ORDERED: PROMETHAZINE 12.5 MG SUPP PR PRN (15:30)
[2019-06-30] MEDS ORDERED: FENTANYL PF 100 MCG/2ML ONE (15:50)
[2019-06-30] MEDS ORDERED: OXYcodone 5 MG/5 ML ORAL.SOL UDC ONE (15:51)
[2019-06-30] MEDS: OXYcodone 5 MG/5 ML ORAL.SOL UDC PO PRN ×2 (15:53→16:02)
[2019-06-30] MEDS ORDERED: KETOROLAC 30 MG/1 ML ONE (15:58)
[2019-06-30] MEDS ORDERED: KETOROLAC 30 MG/1 ML IVPush ONE (16:00)
[2019-06-30] MEDS ORDERED: hydrALAzine 20 MG/ML, 1ML ONE (17:57)
[2019-06-30] MEDS ORDERED: hydrALAzine 20 MG/ML, 1ML IV ONE (18:30)
== END 2019-06-30 18:44 | disposition home or self-care (01) ==
LOC: OUT 12:29
PROVIDERS: ATTEND Surgery
DX: K40.90 Unilateral inguinal hernia, without obstruction or gangrene, not specified as recurrent (principal); K74.60 Unspecified cirrhosis of liver; K75.9 Inflammatory liver disease, unspecified; K76.0 Fatty (change of) liver, not elsewhere classified; R18.8 Other ascites; I25.10 Atherosclerotic heart disease of native coronary artery without angina pectoris; J44.9 Chronic obstructive pulmonary disease, unspecified; I10 Essential (primary) hypertension; Z79.82 Long term (current) use of aspirin; Z79.899 Other long term (current) drug therapy; Z95.0 Presence of cardiac pacemaker; Z82.49 Family history of ischemic heart disease and other diseases of the circulatory system
CPT/HCPCS: 47379; 49650; 88307; C1781; J0171; J0330; J0360; J0690; J1100; J1885; J2250; J2704; J2710; J3010; J7120; S2900

== ENCOUNTER 2020-01-19 11:24 | Outpatient (CLI) | payer OTHER ==
[~2020-01-19 11:24] MED LIST changes: -BUPIVACAINE/PF 0.5% ONE; +CARV-39 PO; -EPINEPHRINE 1 MG/ML, 1ML ONE; +FURO40TA6 PO; +HYDR25TA6 PO; +MELO15TA24 PO; +MONT10TA11 PO; +ONDA4TAB13 PO; +SPIR100T4 PO
[2020-01-19] MEDS ORDERED: OMNIPAQUE 350 MG/ML, 100ML BOTTLE ONE (12:06)
== END 2020-01-19 23:59 | disposition home or self-care (01) ==
LOC: RAD 11:24
PROVIDERS: ATTEND Nurse Practitioner
DX: K80.20 Calculus of gallbladder without cholecystitis without obstruction (principal); N20.0 Calculus of kidney
CPT/HCPCS: 74170; Q9967

== ENCOUNTER → 2020-05-09 | Outpatient (CLI) | payer OTHER | END | disposition home or self-care (01) | LOC: CVU 12:43 | PROVIDERS: ATTEND Internal Medicine Cardiovascular Disease | DX: I08.8 Other rheumatic multiple valve diseases (principal); I65.23 Occlusion and stenosis of bilateral carotid arteries; I25.10 Atherosclerotic heart disease of native coronary artery without angina pectoris | CPT/HCPCS: 93306; 93880 ==

== ENCOUNTER 2020-05-30 08:25 | Emergency (ER) | payer OTHER ==
[~2020-05-30] VITALS: Ht 175.3 cm; Wt 85.0 kg
[2020-05-30 08:30] VITALS: BP 101/60
[2020-05-30] MEDS ORDERED: LIDOCAINE-MPF 1%, 5ML ONE (09:20)
[2020-05-30] MEDS ORDERED: MICROFIBRILLAR COLLAGEN 1 GM TP STA (09:25)
[2020-05-30] MEDS ORDERED: L.E.T SOLUTION TP ONE ×2 (09:26→09:30)
[2020-05-30] MEDS ORDERED: MICROFIBRILLAR COLLAGEN 1 GM TP ONE (09:26)
[2020-05-30] MEDS ORDERED: DIPH,PERTUSS(ACELL),TET VAC/PF 0.5 ML IM-VACC ONE ×2 (09:30→10:41)
[2020-05-30] MEDS ORDERED: NEOSPORIN OINT. PKT 1 PACKET ONE (10:14)
== END 2020-05-30 10:53 | disposition home or self-care (01) ==
LOC: ED 09:48
DX: S01.511A Laceration without foreign body of lip, initial encounter (principal); I12.9 Hypertensive chronic kidney disease with stage 1 through stage 4 chronic kidney disease, or unspecified chronic kidney disease; I50.9 Heart failure, unspecified; E78.00 Pure hypercholesterolemia, unspecified; I25.2 Old myocardial infarction; Z95.0 Presence of cardiac pacemaker; E11.22 Type 2 diabetes mellitus with diabetic chronic kidney disease; W18.30XA Fall on same level, unspecified, initial encounter; Y93.89 Activity, other specified; Y92.009 Unspecified place in unspecified non-institutional (private) residence as the place of occurrence of the external cause; Y99.8 Other external cause status
CPT/HCPCS: 12052; 99284; 99285

== ENCOUNTER 2020-06-08 10:50 | Emergency (ER) | payer OTHER ==
[~2020-06-08] VITALS: Ht 175.3 cm; Wt 90.1 kg
--- NOTE | 2020-06-08 11:15 | NUR ---
PT REQUESTING SUTURE REMOVAL FROM LACERATION REPAIR ON NOSE
--- NOTE | 2020-06-08 11:30 | NUR ---
PJ RN: PT DC HOME IN A STABLE CONDITION. DC INSTRUCTIONS DISCUSSED WITH PT AND . PT AND VERBALIZED UNDERSTANDING. NO FURTHER QUESTIONS OR CONCERNS EXPRESSED AT THAT TIME. PT WALKED WITH TO DC DESK WITH A STEADY GAIT.
[2020-06-08 11:31] VITALS: BP 124/87
== END 2020-06-08 11:33 | disposition home or self-care (01) ==
LOC: ED 11:30
DX: S01.21XD Laceration without foreign body of nose, subsequent encounter (principal); X58.XXXD Exposure to other specified factors, subsequent encounter
CPT/HCPCS: 99281

== ENCOUNTER → 2020-10-24 | Outpatient (CLI) | payer OTHER ==
[~2020-10-24] MED LIST changes: +ASPI-1026 PO; -ASPI-650 PO; -MONT10TA11 PO; +MONT10TA17 PO; +REGADENOSON 0.4 MG/5 ML SYRINGE ONE
== END | disposition home or self-care (01) ==
LOC: CFH 08:32
PROVIDERS: ATTEND Internal Medicine Cardiovascular Disease
DX: I10 Essential (primary) hypertension (principal); I25.10 Atherosclerotic heart disease of native coronary artery without angina pectoris
CPT/HCPCS: 78452; 93017; A9502; J2785

== ENCOUNTER 2020-12-12 07:46 | Emergency (ER) | payer OTHER ==
[~2020-12-12] VITALS: Ht 175.3 cm; Wt 81.7 kg
[~2020-12-12 07:46] MED LIST changes: +AMIO100T4 PO; +OMEG1CAP23 PO; +OXYC5TAB98 PO; -REGADENOSON 0.4 MG/5 ML SYRINGE ONE; +SPIR100T PO
--- NOTE | 2020-12-12 08:14 | NUR ---
This RN listened to breath sounds bilaterally in triage. Present in all green.
--- NOTE | 2020-12-12 08:20 | NUR ---
Pt to Imaging w tech
[2020-12-12 08:51] VITALS: BP 94/63
--- NOTE | 2020-12-12 08:55 | NUR ---
Pt had two falls last night on his L side which resulted in pain from his L shoulder to the bottom of his rib cage, pt is rating the pain 8/10. Slight scab above L eyebrow from fall, placed on all monitors, SO at bedside, positioned for comfort, admits that pt takes ASA, call light in reach, NADN.
== END 2020-12-12 09:44 | disposition home or self-care (01) ==
LOC: ED 08:11
DX: R07.89 Other chest pain (principal); J45.909 Unspecified asthma, uncomplicated; E11.9 Type 2 diabetes mellitus without complications; E78.00 Pure hypercholesterolemia, unspecified; I10 Essential (primary) hypertension; I25.2 Old myocardial infarction
CPT/HCPCS: 93005; 99283

== ENCOUNTER 2021-03-31 11:11 | Emergency (ER) | payer OTHER ==
[~2021-03-31] VITALS: Ht 175.3 cm; Wt 83.9 kg
--- NOTE | 2021-03-31 11:18 | NUR ---
compliance attorney: EKG done in triage
--- NOTE | 2021-03-31 11:37 | NUR ---
WEAK X 7 DAYS, SOB X 2 DAYS (SIMILIAR TO KNOWN ASTHMA). WENT TO URGENT CARE. THEIR EXAM SUGGESTED AFIB. HX OF VTACH WITH PACEMAKER ON CARVEDILOL, AMIODARONE & LASIX
[2021-03-31 11:47] VITALS: BP 128/91
== END 2021-03-31 12:44 | disposition home or self-care (01) ==
LOC: ED 12:38
DX: R06.00 Dyspnea, unspecified (principal); I44.0 Atrioventricular block, first degree; I49.3 Ventricular premature depolarization; E11.22 Type 2 diabetes mellitus with diabetic chronic kidney disease; I12.9 Hypertensive chronic kidney disease with stage 1 through stage 4 chronic kidney disease, or unspecified chronic kidney disease; N18.31 Chronic kidney disease, stage 3a; E78.00 Pure hypercholesterolemia, unspecified; I25.2 Old myocardial infarction
CPT/HCPCS: 93005; 99283